=== PATIENT | male | born 1975 | race Caucasian/White ===

== ENCOUNTER 2024-12-04 17:00 | Emergency (ER) | payer OTHER, MEDICAID, SELFPAY ==
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
[2024-12-04 17:02] VITALS: BP 152/104; PULSE 105; RESP 16; TEMP 36.4; O2SAT 95
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
--- OUTSIDE RECORDS SUMMARY | 2024-12-04 17:03 | XMS_ITS | Clinical Summary ---
Author Organization [facility] Address [facility] [place] [address] Care Team Providers Care Security Screener Name Role Phone Unavailable Primary Care Provider Unavailabl e Social History Tobacco Use Types Packs/Day Years Used Date Smoking Tobacco: Never Assessed Sex and Gender Information Value Date Recorded Sex Assigned at Not on file Legal Sex Male 4:10 PM CDT Gender Identity Not on file Sexual Orientation Not on file Plan of Treatment Health Maintenance Due Date Last Done Comments Colorectal Cancer Screening Colonoscopy (10 Years) 1973 Annual Physical 1976 Hepatitis C 1991 DTaP, Tdap and Td Vaccines ( 1 - Tdap) 1992 Hepatitis B Vaccines (1 of 3 - 19+ 3-dose series) 1992 Zoster Vaccines (1 of 2) 2023 COVID-19 Vaccine ( - 2023-2 5 season) 2024 Influenza Adult (#1) 2024 Meningococcal B Vaccine Aged Out No l onger eligible based on patient's age to complete this topic Meningococcal Vaccine Aged Out No lesia massiel eligible based on patient's age to complete this topic Pneumococcal Vaccine: Pediat rics (0 to 5 Years) and At-Risk Patients (6 to 64 Years) Aged Out No longer eligible b ased on patient's age to complete this topic RSV Immunizations Under 20 Months Aged Out No longer eligible based on patient's age to complete this topic
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
--- OUTSIDE RECORDS SUMMARY | 2024-12-04 17:03 | XMS_ITS | Referral Summary ---
Author Organization [facility] [employer] Address [address] [place] [address] Care Team Providers Care Creative Intern Name Role Phone Dilip Kebede MD Primary Care Provider [phone] Source Comments [facility] [employer],non-owned Affiliates and Associated Physician Practices is amultiple site organization consisting of ambulatory clinics and hospital sitesin [place], [place], [place] and [place]. This disclosure is being madepursuant to the Care Everywhere program and may not contain all information available regarding this patient. Last updated 18.[facility] [employer] Allergies No known active allergies Medications * [...] Comments Blood Pressure 123/99 11/16/2014 1:30 PM VAMP LINER Pulse 109 11/16/2014 1:30 PM VAMP LINER Temperature 36.4 C (97.5 F) 07/16/2014 9:43 AM CDT Respiratory Rate 18 07/16/2014 9:43 AM CDT Oxygen Saturation 97% 07/16/2014 9:43 AM CDT Inhaled Oxygen Concentration - - Weight 88.5 kg (195 lb) 11/16/2014 1:30 PM VAMP LINER Height 160 cm (5' 3 ) 11/16/2014 1:30 PM VAMP LINER Body Mass Index 34.54 11/16/2014 1:30 PM VAMP LINER Functional Status Functional Status Response Date of Assess ment Is person deaf or have serious hearing difficult y? No 07/15/2014 Is person blind or have serious difficulty seein g? No 07/15/2014 Does person have serious dif ficulty walking/climbing stairs? No 07/15/2014 Does person have difficulty dressing/bathing? No 07/15/2014 Does person have difficulty doing errands alone? No 07/15/2014 Cognitive Status Response Date of Assessm ent Does person have difficulty concentrating/remembering/making decisions? No 07/15/2014 Plan of Treatment Not on file Medical Devices Implanted Type Area Supervisor Plating And Point Assembly Device Identifier Shelf Expiration Date Model / Serial / Lot Enedina Ayalax Bone 1.0cc - [id number] Implanted:Qty : 1 on 07/15/2014 by Chris Mogran MD at [facility] N/A: Spine Cervical Spinal [employer] 03/07/2017 [id number] / [id number] / Space Peek 7 X 16 X 14mm Implanted:Qty : 1 on 07/15/2014 by Chris Morgan MD at [facility] N/A: Spine Cervical Medtr[employer] 06/17/2022 [id number] / / [id number] Advance Directives * Full Code (Latest Code Status on File) Date Activated Date Inactivated Comments 07/15/2014 10:48 PM 07/16/2014 11:52 AM Care Teams Creative Intern Relationship Specialty Start Date End Date Dilip Kebede MD [address] [place] [id number] PCP - General Internal Medicine 08/31/14
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
--- OUTSIDE RECORDS SUMMARY | 2024-12-04 19:41 | XMS_ITS | Clinical Summary ---
Author Organization [facility] [employer] Address [address] [place] [address] Care Team Providers Care Space Operations Officer Name Role Phone Dilip Kebede MD Primary Care Provider [phone] Source Comments [facility] [employer],non-owned Affiliates and Associated Physician Practices is amultiple site organization consisting of ambulatory clinics and hospital sitesin [place], [place], [place] and [place]. This disclosure is being madepursuant to the Care Everywhere program and may not contain all information available regarding this patient. Last updated 18.[facility] [employer] Allergies No known active allergies Medications * [...] Comments Blood Pressure 123/99 11/16/2014 1:30 PM DISASTER RECOVERY ANALYST Pulse 109 11/16/2014 1:30 PM DISASTER RECOVERY ANALYST Temperature 36.4 C (97.5 F) 07/16/2014 9:43 AM CDT Respiratory Rate 18 07/16/2014 9:43 AM CDT Oxygen Saturation 97% 07/16/2014 9:43 AM CDT Inhaled Oxygen Concentration - - Weight 88.5 kg (195 lb) 11/16/2014 1:30 PM DISASTER RECOVERY ANALYST Height 160 cm (5' 3 ) 11/16/2014 1:30 PM DISASTER RECOVERY ANALYST Body Mass Index 34.54 11/16/2014 1:30 PM DISASTER RECOVERY ANALYST Plan of Treatment Health Maintenance Due Date [...] this topic Medical Devices Implanted Type Area Plant Maintenance Worker Device Identifier Shelf Expiration Date Model / Serial / Lot Enedina Cross Dbx Bone 1.0cc - [id number] Implanted:Qty : 1 on 07/15/2014 by Chris Morgan MD at [facility] N/A: Spine Cervical Spinal [employer] 03/07/2017 [id number] / [id number] / Space Peek 7 X 16 X 14mm Implanted:Qty : 1 on 07/15/2014 by Chris Morgan MD at [facility] N/A: Spine Cervical [employer] 06/17/2022 [id number] / / [id number] Advance Directives * Full Code (Latest Code Status on File) Date Activated Date Inactivated Comments 07/15/2014 10:48 PM 07/16/2014 11:52 AM Care Teams Space Operations Officer Relationship Specialty Start Date End Date Dilip Kebede MD [address] [place] [address] [address] [place] [address] PCP - General Internal Medicine 08/31/14
--- OUTSIDE RECORDS SUMMARY | 2024-12-04 19:41 | XMS_ITS | Referral Summary ---
Author Organization [facility] [employer] Address [address] [address] Care Team Providers Care Dentofacial Orthopedics Dentist Name Role Phone Dilip Kebede MD Primary Care Provider [phone] Source Comments [facility],non-owned Affiliates and Associated Physician Practices is amultiple site organization consisting of ambulatory clinics and hospital sitesin [place], [place], [place] and [place]. This disclosure is being madepursuant to the Care Everywhere program and may not contain all information available regarding this patient. Last updated 18.[facility] Allergies No known active allergies Medications * [...] Comments Blood Pressure 123/99 11/16/2014 1:30 PM SR. PAYROLL PROCESSOR Pulse 109 11/16/2014 1:30 PM SR. PAYROLL PROCESSOR Temperature 36.4 C (97.5 F) 07/16/2014 9:43 AM CDT Respiratory Rate 18 07/16/2014 9:43 AM CDT Oxygen Saturation 97% 07/16/2014 9:43 AM CDT Inhaled Oxygen Concentration - - Weight 88.5 kg (195 lb) 11/16/2014 1:30 PM SR. PAYROLL PROCESSOR Height 160 cm (5' 3 ) 11/16/2014 1:30 PM SR. PAYROLL PROCESSOR Body Mass Index 34.54 11/16/2014 1:30 PM SR. PAYROLL PROCESSOR Functional Status Functional Status Response Date of [...] on file Medical Devices Implanted Type Area Black Top Spreader Machine Operator Device Identifier Shelf Expiration Date Model / Serial / Lot Enedina Ayalax Bone 1.0cc - [id number] Implanted:Qty : 1 on 07/15/2014 by Chris Morgan MD at [facility] N/A: Spine Cervical Spinal [employer] 03/07/2017 [id number] / [id number] / Space Peek 7 X 16 X 14mm Implanted:Qty : 1 on 07/15/2014 by Chris Morgan MD at [facility] N/A: Spine Cervical [employer] 06/17/2022 [id number] / / [id number] Advance Directives * Full Code (Latest Code Status on File) Date Activated Date Inactivated Comments 07/15/2014 10:48 PM 07/16/2014 11:52 AM Care Teams Dentofacial Orthopedics Dentist Relationship Specialty Start Date End Date Dilip Kebede MD [address] [place] [id number] PCP - General Internal Medicine 08/31/14
--- OUTSIDE RECORDS SUMMARY | 2024-12-04 19:41 | XMS_ITS | Clinical Summary ---
Author Organization [facility] Address [id number] [place] [address] Care Team Providers Care Spanish Instructor Name Role Phone Unavailable Primary Care Provider [...]
--- OUTSIDE RECORDS SUMMARY | 2024-12-04 19:41 | XMS_ITS | Patient Health Summary ---
Author Organization [facility] [employer] Address [address] [place] [address] Care Team Providers Care Client Partner Name Role Phone Dilip Kebede MD Primary Care Provider [phone] Note from [facility],non-owned Affiliates and Associated Physician Practices is amultiple site organization consisting of ambulatory clinics and hospital sitesin [place], [place], [place] and [place]. This disclosure is being madepursuant to the Care Everywhere program and may not contain all information available regarding this patient. Last updated 18.[facility] [employer] Allergies No known active allergies Medications * [...] Blood Pressure 123/99 11/16/2014 1:[address] Pulse 109 11/16/2014 1:[address] Temperature 36.4 C (97.5 F) 07/16/2014 9:43 AM CDT Respiratory Rate 18 07/16/2014 9:43 AM CDT Oxygen Saturation 97% 07/16/2014 9:43 AM CDT Inhaled Oxygen Concentration - - Weight 88.5 kg (195 lb) 11/16/2014 1:[address] Height 160 cm (5' 3 ) 11/16/2014 1:[address] Body Mass Index 34.54 11/16/2014 1:[address] Medical Devices Implanted Type Area Barrel Maker Device Identifier Shelf Expiration Date Model / Serial / Lot Enedina Ayalax Bone 1.0cc - [id number] Implanted:Qty : 1 on 07/15/2014 by Chris Morgan MD at [facility] N/A: Spine Cervical Spinal [employer] 03/07/2017 [id number] / [id number] / Space Peek 7 X 16 X 14mm Implanted:Qty : 1 on 07/15/2014 by Chris Morgan MD at [facility] N/A: Spine Cervical [employer] 06/17/2022 [id number] / / [id number] Procedures * MRI CERVICAL SPINE WO CONTRAST(Performed [...] 1 VIEW (07/15/2014 9:13 PM CDT) Narrative [facility] - 07/16/2014 1:06 PM CDT No Dictation. Chris Morgan MD DIAGNOSTIC IMAGING O RDERABLES [facility] [address] [place] [address] Care Teams Client Partner Relationship Specialty Start Date End Date Dilip Kebede MD [address] [place] [address] [address] [place] [address] PCP - General Internal Medicine 08/31/14
[2024-12-04] MEDS: SULFAMETHOXAZOLE/TRIMETHOPRIM 800/160 MG DS TABLET 1 TAB PO (19:45)
[2024-12-04 19:46] VITALS: BP 147/99; PULSE 92; RESP 17; O2SAT 98
[2024-12-04] MEDS: HYDROcodone/acetaminophen (*CRX) 5-325 MG TABLET 1 TAB PO (19:46)
[2024-12-04] MEDS: BACITRACIN ZINC OINTMENT 0.9 GRAM PACKET 1 PACKET TOPICAL (19:46)
== END 2024-12-04 20:00 | disposition home or self-care (01) ==
PROVIDERS: Emergency Provider Emergency Medicine; PCP Internal Medicine
DX: S49.91XA Unspecified injury of right shoulder and upper arm, initial encounter (principal); V43.62XA Car passenger injured in collision with other type car in traffic accident, initial encounter
CPT/HCPCS: 73030; 99283; A9270